=== PATIENT | female | born 1960 | race African-American/Black ===

== ENCOUNTER 2016-08-26 18:58 | Emergency (ER) | payer BC, OTHER ==
[2016-08-26] MEDS ORDERED: ASPIRIN 81 MG TABLET, CHEWABLE ONE (19:54)
[2016-08-26] MEDS ORDERED: ASPIRIN 81 MG TABLET, CHEWABLE PO ONE (19:56)
[2016-08-26 20:27] LABS: ABSOLUTE EOSINOPHILS # (AUTO) 0.1 10^3/uL (0.0-0.6); ABSOLUTE LYMPHOCYTES (AUTO) 2.6 10^3/uL (0.5-4.7); ABSOLUTE MONOCYTES (AUTO) 0.5 10^3/uL (0.1-1.4); ABSOLUTE NEUT (AUTO) 4.3 10^3/uL (1.7-8.2); BASOPHILS % (AUTO) 0.4 % (0-2); EOSINOPHILS % (AUTO) 1.1 % (0-6); HEMATOCRIT 43.4 % (36.0-47.0); HEMOGLOBIN 13.7 g/dL (12.0-15.5); HGB HCT DIFFERENCE -2.3; LYMPHOCYTES % (AUTO) 34.8 % (13-45); MEAN CORPUSCULAR HEMOGLOBIN 26.8 pg (27.0-33.4); MEAN CORPUSCULAR HGB CONC 31.5 g/dL (32.0-36.0); MEAN CORPUSCULAR VOLUME 85 fl (80-97); MONOCYTES % (AUTO) 6.1 % (3-13); RED BLOOD COUNT 5.09 10^6/uL (3.72-5.28); SEGMENTED NEUTROPHILS % (AUTO) 57.6 % (42-78); WHITE BLOOD COUNT 7.5 10^3/uL (4.0-10.5)
[2016-08-26 20:43] LABS: ALANINE AMINOTRANSFERASE 40 U/L (9-52); ALBUMIN 4.4 g/dL (3.5-5.0); ALKALINE PHOSPHATASE 86 U/L (38-126); ANION GAP 8 (5-19); ASPARTATE AMINO TRANSFERASE 32 U/L (14-36); BILIRUBIN,DIRECT 0.3 mg/dL (0.0-0.4); BILIRUBIN,TOTAL 0.5 mg/dL (0.2-1.3); BLOOD UREA NITROGEN 13 mg/dL (7-20); CALCIUM 9.8 mg/dL (8.4-10.2); CARBON DIOXIDE 29 mmol/L (22-30); CHLORIDE 106 mmol/L (98-107); CREATINE KINASE 58 U/L (30-135); CREATININE RESULT 0.61 mg/dL (0.52-1.25); GLUCOSE 84 mg/dL (75-110); LIPASE 101.4 U/L (23-300); POTASSIUM 4.4 mmol/L (3.6-5.0); SODIUM 142.7 mmol/L (137-145); TOTAL PROTEIN 7.6 g/dL (6.3-8.2)
--- NOTE | 2016-08-26 20:44 | RADIOLOGY REPORT (SQ) ---
EXAM DESCRIPTION: CHEST SINGLE VIEW COMPLETED DATE/TIME: 08/26/2016 8:32 pm REASON FOR STUDY: chest pain COMPARISON: 2010. NUMBER OF VIEWS: One view. TECHNIQUE: Single frontal radiographic view of the chest acquired. LIMITATIONS: None. FINDINGS: LUNGS AND PLEURA: No opacities, masses or pneumothorax. No pleural effusion. Attenuated bl ood vessels and flattened cara-diaphragms. MEDIASTINUM AND HILAR STRUCTURES: No masses. Contour normal. HEART AND VASCULAR STRUCTURES: Heart normal in size. Normal vasculature. BONES: No acute findings. HARDWARE: None in the chest. OTHER: No other significant finding. IMPRESSION: COPD. NO ACUTE RADIOGRAPHIC FINDING IN THE CHEST. TECHNICAL DOCUMENTATION: JOB ID: [id number] [employer]- All Rights Reserved
--- NOTE | 2016-08-26 21:15 | ER Document Report ---
ED Cardiac - General Chief Complaint: Chest Pain Stated Complaint: CHEST PAIN Time Seen by Provider: 08/26/16 20:49 Notes: Patient is here to be evaluated for chest pain that she says started yesterday, located in the lower central region of her chest. She describes it as a pressure. She says that she has a history of SVT in her heart has felt as if it was "coming out of my chest", although patient does not say that she is having any SVT issues while here in the emergency department on the monitor. Patient says that it does bring her discomfort to take a deep breath or cough. She takes Cardizem 240 mg daily for this SVT and has not missed a dose. She has not had symptoms like this before. She says that she has been nauseated but not vomiting. She did say that she started having diarrhea yesterday and had 2 or 3 episodes today as well. Has had some generalized abdominal pain. Says that she had bronchitis a couple of weeks ago and has had a residual cough. She has felt a little bit short of breath since yesterday and earlier today. She has had a fever because she has had heavy sweats. Patient has no history of any coronary artery disease or heart attacks. TRAVEL OUTSIDE OF THE [place] IN LAST 30 DAYS: No - Related Data Allergies/Adverse Reactions: promethazine HCl [From Phenergan] Allergy (Unknown, Verified 08/26/16 19:11) Contrast Adverse Reaction (Severe, Uncoded 08/26/16 19:11) Unknown reaction Past Medical History - Social History Smoking Status: Never Smoker Cigarette use (# per day): No Chew tobacco use (# tins/day): No Frequency of alcohol use: None Drug Abuse: None Family History: Reviewed & Not Pertinent Patient has suicidal ideation: No Patient has homicidal ideation: No - Past Medical History Cardiac Medical History: Reports: Other - SVT Neurological Medical History: Reports: Hx Migraine GI Medical History: Reports: Hx Gastroesophageal Reflux Disease, Hx Hiatal Hernia, Other - History of mesenteric thrombosis. Past Surgical History: Reports: Hx Appendectomy, Hx Hysterectomy, Hx Orthopedic Surgery - Immunizations Hx Diphtheria, Pertussis, Tetanus Vaccination: Yes Review of Systems - Review of Systems Notes: REVIEW OF SYSTEMS: CONSTITUTIONAL : Has had sweats and think she may have had some fever. EENT: Denies eye, ear, nose or mouth or throat pain or other symptoms. CARDIOVASCULAR: See HPI. RESPIRATORY: HPI. GASTROINTESTINAL: Denies abdominal pain or nausea, vomiting, has had diarrhea.. GENITOURINARY: Denies difficulty or painful urinating, urinary frequency, blood in urine. MUSCULOSKELETAL: Denies back or neck pain. Denies joint pain or swelling. SKIN: Denies rash or skin lesions. NEUROLOGICAL: Denies LOC or altered mental status. Denies headache. Denies sensory loss or motor deficits. ALL OTHER SYSTEMS REVIEWED AND NEGATIVE. Physical Exam - Vital signs Vitals: Temp Pulse Resp BP Pulse Ox 98.2 F 85 16 139/87 H 100 08/26/16 19:12 08/26/16 19:12 08/26/16 19:12 08/26/16 19:12 08/26/16 19:12 Interpretation: Normal - Notes Notes: PHYSICAL EXAMINATION: GENERAL: Well-appearing, in no acute distress. Vital signs are normal. Patient 's monitor has not shown any runs of SVT since the patient has been here. HEAD: Atraumatic, normocephalic. ENT: oropharynx clear without exudates. Moist mucous membranes. NECK: Normal range of motion, supple. LUNGS: Breath sounds clear and equal bilaterally. No significant tenderness to palpation. HEART: Regular rate and rhythm without murmurs. ABDOMEN: Soft, nontender. No guarding or rebound. BACK: No tenderness throughout entire back. EXTREMITIES: Normal range of motion without pain. Negative Homans bilaterally. NEUROLOGICAL: Normal speech, normal gait. Normal sensory, motor, and reflex exams. Awake, alert, and oriented x3. Cranial nerves normal. PSYCH: Normal mood, normal affect. Anxious. SKIN: Warm, dry, no rashes. Course - Vital Signs Vital signs: Temp Pulse Resp BP Pulse Ox 98.2 F 85 16 139/87 H 100 08/26/16 19:12 08/26/16 19:12 08/26/16 19:12 08/26/16 19:12 08/26/16 19:12 - Laboratory Result Diagrams: 08/26/16 20:13 08/26/16 20:13 Laboratory results interpreted by me: 08/26/16 20:13 MCH 26.8 L MCHC 31.5 L Discharge - Discharge Clinical Impression: Chest pain, non-cardiac Condition: Stable Disposition: HOME, SELF-CARE Additional Instructions: CHEST PAIN OF UNCLEAR CAUSE: The exact cause of your chest pain isn't clear. Fortunately, there is no evidence of a dangerous medical condition. Further testing may be required to find the source of the pain. Most often, we find that this pain is coming from the chest wall -- the muscles or rib joints in the chest. But chest pain can come from the lung and lung lining, the esophagus, the heart valves or heart lining, and even the stomach or gallbladder. Rest. Eat lightly until the pain is gone. We may prescribe medicine for pain and inflammation. You should call the physician immediately if the pain radiates to the shoulder, jaw or arms; if you start to run a fever or develop a cough; or if you develop shortness of breath, or other new or alarming symptoms. NORMAL EXAM AND WORKUP: At this time, your examination and workup show no significant abnormality. No significant abnormal physical findings were noted. All laboratory, EKG, and imaging (x-ray, CT scans, ultrasound) studies that were ordered show no significant abnormality. Although your examination and all studies that were ordered showed no significant abnormal finding, there are no examinations and no studies that are 100% accurate. There is always the possibility that some abnormality could exist and not be detected with physical examination or within the limits and capabilities of laboratory and other studies. You should return or follow up as you were instructed on your visit today for further evaluation if your symptoms do not resolve. CHEST WALL PAIN: Your chest pain may be coming from the chest wall. This is often caused by straining the muscles or joints in the chest during physical activity, direct trauma, coughing, or vigorous vomiting. Persons with arthritis are especially prone to this type of pain, due to inflammation of the cartilage joints near the breast bone. Occasionally, no cause can be found. Rest from strenuous physical activity. This kind of chest pain is usually made worse by movement of the chest. Depending on the symptoms, we may prescribe medicine for pain, muscle relaxation, and antiinflammatory effects. If the pain is new, and seems to be due to muscle strain, cold packs can help. Otherwise, apply gentle warmth to the painful area for 15 minutes every hour or two. You should call contact the doctor immediately if things change. Further evaluation is needed if you develop a fever or cough, if the nature of the pain changes, or if you become short of breath. ASPIRIN: Aspirin has been shown to have a beneficial effect on blood circulation by reducing the clotting effect of platelets in the blood. These beneficial effects can be achieved by taking just a single baby (81 mg) aspirin a day. It is recommended that any person over the age of forty take a single baby aspirin every day for heart and brain circulation, unless you are allergic to aspirin or have some significant bleeding disorder. It is strongly recommended that people who have proven cardiac or blood circulation disturbances should take a baby aspirin every day. FOLLOW-UP CARE: If you have been referred to a physician for follow-up care, call the physician s office for an appointment as you were instructed or within the next two days. If you experience worsening or a significant change in your symptoms, notify the physician immediately or return to the Emergency Department at any time for re-evaluation. If you develop new or worsening symptoms, return at anytime for further evaluation and reassessment. Forms: Parent Work Note, Return to Work
[2016-08-26 21:33] VITALS: BP 135/94
--- NOTE | 2016-08-26 21:37 | EKG REPORT ---
SEVERITY:- NORMAL ECG - SINUS RHYTHM : Confirmed by: Isabelle Sullivan 26-Aug-2016 21:37:12
== END 2016-08-26 21:20 | disposition home or self-care (01) ==
LOC: ER 18:58
DX: R07.89 Other chest pain (principal); I47.1 Supraventricular tachycardia; Z79.899 Other long term (current) drug therapy; R11.0 Nausea; R19.7 Diarrhea, unspecified; R10.84 Generalized abdominal pain; R61 Generalized hyperhidrosis; R05 Cough; R06.02 Shortness of breath; Z88.8 Allergy status to other drugs, medicaments and biological substances; Z87.19 Personal history of other diseases of the digestive system; Z90.49 Acquired absence of other specified parts of digestive tract; Z90.710 Acquired absence of both cervix and uterus
CPT/HCPCS: 36415; 71010; 80053; 82550; 83690; 84484; 85025; 93005; 93010; 99285

== ENCOUNTER → 2018-03-06 | Outpatient (CLI) | payer OTHER ==
[2018-03-06 10:35] LABS: ABSOLUTE EOSINOPHILS # (AUTO) 0.1 10^3/uL (0.0-0.6); ABSOLUTE LYMPHOCYTES (AUTO) 2.1 10^3/uL (0.5-4.7); ABSOLUTE MONOCYTES (AUTO) 0.5 10^3/uL (0.1-1.4); ABSOLUTE NEUT (AUTO) 6.2 10^3/uL (1.7-8.2); BASOPHILS % (AUTO) 0.1 % (0-2); EOSINOPHILS % (AUTO) 0.8 % (0-6); HEMATOCRIT 39.7 % (36.0-47.0); LYMPHOCYTES % (AUTO) 23.5 % (13-45); MEAN CORPUSCULAR HGB CONC 32.9 g/dL (32.0-36.0); MEAN CORPUSCULAR VOLUME 82 fl (80-97); MONOCYTES % (AUTO) 5.3 % (3-13); PLATELET COUNT 255 10^3/uL (150-450); RED BLOOD COUNT 4.83 10^6/uL (3.72-5.28); RED CELL DISTRIBUTION WIDTH 12.6 % (11.5-14.0); SEGMENTED NEUTROPHILS % (AUTO) 70.3 % (42-78); TOTAL CELLS COUNTED % (AUTO) 100 %; WHITE BLOOD COUNT 8.9 10^3/uL (4.0-10.5)
[2018-03-06 11:03] LABS: ANION GAP 8 (5-19); BLOOD UREA NITROGEN 17 mg/dL (7-20); CALCIUM 10.2 mg/dL (8.4-10.2); CARBON DIOXIDE 31 mmol/L (22-30); CHLORIDE 104 mmol/L (98-107); GLUCOSE 117 mg/dL (75-110); SODIUM 142.6 mmol/L (137-145)
--- NOTE | 2018-03-06 11:11 | RADIOLOGY REPORT (SQ) ---
EXAM DESCRIPTION: CHEST PA/LATERAL COMPLETED DATE/TIME: 03/06/2018 10:47 am REASON FOR STUDY: PRE-OP COMPARISON: None. EXAM PARAMETERS: NUMBER OF VIEWS: two views TECHNIQUE: Digital Frontal and Lateral radiographic views of the chest acquired. RADIATION DOSE: NA LIMITATIONS: none FINDINGS: LUNGS AND PLEURA: No opacities, masses or pneumothorax. No pleural effusion. MEDIASTINUM AND HILAR STRUCTURES: No masses or contour abnormalities. HEART AND VASCULAR STRUCTURES: Heart normal size. No evidence for failure. BONES: No acute findings. HARDWARE: None in the chest. OTHER: No other significant finding. IMPRESSION: NO SIGNIFICANT RADIOGRAPHIC FINDING IN THE CHEST. TECHNICAL DOCUMENTATION: JOB ID: [id number] [employer]- All Rights Reserved Reading location - IP/workstation name: [email or web address]
--- NOTE | 2018-03-06 12:42 | EKG REPORT ---
SEVERITY:- NORMAL ECG - SINUS RHYTHM : Confirmed by: Matt Boyce MD 06-Mar-2018 12:41:53
== END ==
LOC: OD 09:59
PROVIDERS: ATTEND Orthopaedic Surgery
DX: Z01.810 Encounter for preprocedural cardiovascular examination (principal); Z01.812 Encounter for preprocedural laboratory examination; Z01.818 Encounter for other preprocedural examination; Z01.89 Encounter for other specified special examinations
CPT/HCPCS: 36415; 71046; 80048; 85025; 93005; 93010

== ENCOUNTER 2018-04-03 10:20 | Day surgery (SDC) | payer OTHER ==
[~2018-04-03 10:20] MED LIST: ACETAMINOPHEN 1,000 MG/100 ML RTUPB IV ONE; BUPIVACAINE HCL 0.5 % INJ/PF 30 ML SDV ONE; CEFAZOLIN 2 GM/D5W RTU 2 GM/50 ML RTUPB IV ONE; CEFAZOLIN 2 GM/D5W RTU 2 GM/50 ML RTUPB IV PRN; DEXAMETHASONE SOD PHOSPHATE INJ 4 MG/1 ML VIAL ONE; FENTANYL CITRATE INJ/PF 100 MCG/2 ML AMPUL ONE; KETOROLAC TROMETHAMINE 60 MG/2 ML SDV ONE; MIDAZOLAM 2 MG/2 ML INJ ONE; ONDANSETRON HCL INJ/PF 4 MG/2 ML SDV ONE; PROPOFOL INJ 200 MG/20 ML VIAL IV ONE
[2018-04-03 11:34] LABS: APPEARANCE,URINE SLIGHTLY-CLOUDY; BILIRUBIN,URINE NEGATIVE (NEGATIVE); COLOR,URINE YELLOW; GLUCOSE, URINE NEGATIVE (NEGATIVE); KETONES,URINE NEGATIVE (NEGATIVE); LEUKOCYTE ESTERASE,URINE TRACE (NEGATIVE); NITRITE,URINE NEGATIVE (NEGATIVE); PROTEIN,URINE NEGATIVE (NEGATIVE); URINE SPECIFIC GRAVITY 1.017; UROBILINOGEN,URINE NEGATIVE mg/dL (<2.0)
[2018-04-03] MEDS ORDERED: ONDANSETRON HCL INJ/PF 4 MG/2 ML SDV IV PRN (14:40)
[2018-04-03] MEDS ORDERED: MEPERIDINE HCL/PF INJ 25 MG/1 ML DISP.SYRIN IV PRN (14:40)
[2018-04-03] MEDS ORDERED: MORPHINE SULFATE 10 MG/ML INJ IV PRN (14:40)
[2018-04-03] MEDS ORDERED: FENTANYL CITRATE INJ/PF 100 MCG/2 ML AMPUL IV PRN ×3 (14:40)
[2018-04-03] MEDS ORDERED: DIPHENHYDRAMINE HCL 50 MG/ML VIAL IV PRN (14:40)
--- NOTE | 2018-04-03 15:20 | Discharge Summary ---
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 Patient instructed to keep dressing dry clean and intact for 4 days and then allowed to remove. At that point patient can shower and apply Band-Aids as needed. Patient can weight-bear as tolerated and do range of motion exercises as tolerated. Crutches for support and safety. Can wean crutches once stable on his feet. Patient instructed to call the office if patient develops fevers chills redness and drainage from the surgical sites. Prescriptions: Oxycodone HCl/Acetaminophen [Percocet 5-325 mg Tablet] 1 - 2 tab PO ASDIR PRN #25 tablet PRN Reason: Referrals: [facility] [Primary Care [facility]] - Discharge Diet: As Tolerated Respiratory Treatments at Home: Deep Breathing/Coughing Discharge Activity: No Driving, No Lifting/Push/Pulling, Slowly Increase Activity, Walk Frequently Home Care Assistance: None Needed Adaptive Devices on Discharge: Axillary Crutches Report the Following to Your Physician Immediately: Shortness of Breath, Vomiting, Increase in Pain, Fever over 101 Degrees, Unusual Bleeding, Redness, Swelling, Warmth, Increased Soreness, Drainage-Yellow, Drainage-Tran, Drainage- Green, Drainage-Foul Smelling
[2018-04-03] MEDS: FENTANYL CITRATE INJ/PF 100 MCG/2 ML AMPUL ONE ×2 (16:15→16:20)
--- NOTE | 2018-04-03 16:37 | Operative Report ---
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 Once the tube was secured the right lower extremity thigh tourniquet was applied and the left lower extremity was prepped and draped in a normal surgical fashion. Timeout was done identifying the left knee has a correct site. The extremity was held elevated for a couple minutes and then tourniquet was inflated at 300 mmHg 0.5% of Marcaine was injected into the anticipated portal sites. 11 blade was used to establish the anterolateral portal. Scope was introduced and the capsule was distended with sterile saline solution. Under direct visualization the anteromedial portal sites was established first by applying a spinal needle and then established with the 11 blade. Probe was introduced and a diagnostic scope was done. Immediately noted the patient had lateral facet grade 2 and 3 changes. Patient also had chondromalacia grade 3 on the lateral tibial plateau. Menisci were intact and the femoral condyles were intact as well as the femoral trochlear groove. She has significant fat tissue as well so we proceeded to then resect some of the fat pad using the shaver and radiofrequency ablator. I also proceeded to use the 4.0 mm shaver to do my chondroplasty of the patella on the lateral facet before and after pictures were taken. The leg was placed in the hyitcc-wi-kiki and I was able then to trim the edges of the lateral meniscus and also the lateral tibial plateau which had some fraying of the cartilage. Final pictures were taken no other pathology appreciated at this point the fluid was removed and the tourniquet was let down and we proceeded to close the wound using 3-0 nylon. Xeroform 4 x 4 dressings were applied and overwrapped with soft roll and Chuck bandage. Patient then was extubated undraped and then sent to PACU in stable condition
[2018-04-03] MEDS ORDERED: TRAMADOL HCL 50 MG TABLET PO PRN (17:40)
[2018-04-03 19:15] VITALS: BP 112/65
== END 2018-04-03 18:05 | disposition home or self-care (01) ==
LOC: OROUT 10:20
PROVIDERS: ATTEND Orthopaedic Surgery
DX: M22.41 Chondromalacia patellae, right knee (principal); I10 Essential (primary) hypertension; I47.9 Paroxysmal tachycardia, unspecified; Z86.718 Personal history of other venous thrombosis and embolism; Z88.8 Allergy status to other drugs, medicaments and biological substances; Z79.899 Other long term (current) drug therapy; Z91.041 Radiographic dye allergy status
CPT/HCPCS: 81001; 29877; J2250; J3490; J1100; J1885; J3010; J2405; J2704; J0690; J0131; 1400

== ENCOUNTER 2018-08-20 13:55 | Emergency (ER) | payer OTHER ==
[2018-08-20] MEDS ORDERED: ACETAMINOPHEN 325 MG TABLET PO ONE (14:47)
[2018-08-20] MEDS ORDERED: NORMAL SALINE 1000 ML 1,000 ML IV ONE (14:47)
--- NOTE | 2018-08-20 14:52 | ER Document Report ---
ED Medical Screen (RME) - General Chief Complaint: Near Syncope Stated Complaint: SYNCOPE Time Seen by Provider: 08/20/18 14:44 Primary Care Provider: [facility] [Primary Care Provider] - Follow up as needed Information source: Patient Notes: Patient presents stating that she outside watering plants and she became diaphoretic. Patient states that she started to have palpitations and that she attributed the sweating to having the palpitations as she does have a history of SVT and suspected the same today. Patient states she felt like she was going to pass out. Patient states she did make it inside her home and then had a syncopal episode. Patient's daughter was able to call EMS. Patient complains of severe headache since this episode with nausea. Patient also complains of left fourth finger pain. Patient complains of feeling generalized weak and tired. I have greeted and performed a rapid initial assessment of this patient. A comprehensive ED assessment and evaluation of the patient, analysis of test results and completion of the medical decision making process will be conducted by additional ED providers. TRAVEL OUTSIDE OF THE [place] IN LAST 30 DAYS: No - Related Data Allergies/Adverse Reactions: promethazine HCl [From Phenergan] Allergy (Unknown, Verified 08/20/18 14:04) Contrast Adverse Reaction (Severe, Uncoded 08/20/18 14:04) Unknown reaction Past Medical History - Past Medical History Cardiac Medical History: Reports: Hx Hypertension - ? Denies: Hx Coronary Artery Disease, Hx Heart Attack Pulmonary Medical History: Denies: Hx Asthma, Hx Bronchitis, Hx COPD, Hx Pneumonia Neurological Medical History: Reports: Hx Migraine. Denies: Hx Cerebrovascular Accident, Hx Seizures Renal/ Medical History: Denies: Hx Peritoneal Dialysis GI Medical History: Reports: Hx Gastroesophageal Reflux Disease, Hx Hiatal Hernia Musculoskeltal Medical History: Reports Hx Arthritis Past Surgical History: Reports: Hx Appendectomy, Hx Hysterectomy, Hx Orthopedic Surgery - Immunizations Hx Diphtheria, Pertussis, Tetanus Vaccination: Yes History of Influenza Vaccine for 11/2016 - 04/2017 Season: Yes Influenza Administration Date for 11/2016 - 04/2017 Season: 12/10/17 Physical Exam - Vital signs Vitals: Temp Pulse Resp BP Pulse Ox 98.1 F 74 20 111/88 H 97 08/20/18 14:36 08/20/18 14:36 08/20/18 14:36 08/20/18 14:36 08/20/18 14:36 - General General appearance: Alert - Neurological Neuro grossly intact: Yes Waldorf Coma Scale Eye Opening: Spontaneous Dionne Coma Scale Verbal: Oriented Waldorf Coma Scale Motor: Obeys Commands Dionne Coma Scale Total: 15 Course - Vital Signs Vital signs: Temp Pulse Resp BP Pulse Ox 98.1 F 74 20 111/88 H 97 08/20/18 14:36 08/20/18 14:36 08/20/18 14:36 08/20/18 14:36 08/20/18 14:36 Doctor's Discharge - Discharge Referrals: [facility] [[facility]] - Follow up as needed
--- NOTE | 2018-08-20 15:45 | RADIOLOGY REPORT (SQ) ---
EXAM DESCRIPTION: CT HEAD WITHOUT COMPLETED DATE/TIME: 08/20/2018 3:35 pm REASON FOR STUDY: GELLER, syncope COMPARISON: 02/28/2011. TECHNIQUE: Axial images acquired through the brain without intravenous contrast. Images reviewed wi th bone, brain and subdural windows. Additional sagittal and coronal reconstructions were generated. Images stored on PACS. All CT scanners at this facility use dose modulation, iterative reconstruction, and/or weight based d osing when appropriate to reduce radiation dose to as low as reasonably achievable (ALARA). [facility]: Dose Right [facility]: CareDose [facility]: Dose Right [facility]: Teradose 4D [facility]: [employer] RADIATION DOSE: CT Rad equipment meets quality standard of care and radiation dose reduction techniq ues were employed. CTDIvol: 53.2 mGy. DLP: 1150 mGy-cm. mGy. LIMITATIONS: None. FINDINGS: VENTRICLES: Normal size and contour. CEREBRUM: No masses. No hemorrhage. No midline shift. No evidence for acute infarction. Normal gra y/white matter differentiation. No areas of low density in the white matter. CEREBELLUM: No masses. No hemorrhage. No alteration of density. No evidence for acute infarction. EXTRAAXIAL SPACES: No fluid collections. No masses. ORBITS AND GLOBE: No intra- or extraconal masses. Normal contour of globe without masses. CALVARIUM: No fracture. PARANASAL SINUSES: No fluid or mucosal thickening. SOFT TISSUES: No mass or hematoma. OTHER: No other significant finding. IMPRESSION: NORMAL BRAIN CT WITHOUT CONTRAST. EVIDENCE OF ACUTE STROKE: NO. COMMENT: Quality ID # [id number]: Final reports with documentation of one or more dose reduction techniques (e.g., Automated exposure control, adjustment of the mA and/or kV according to patient size, use of iterative reconstruction technique) TECHNICAL DOCUMENTATION: JOB ID: [id number] [employer]- All Rights Reserved Reading location - IP/workstation name: [email or web address]
--- NOTE | 2018-08-20 15:50 | RADIOLOGY REPORT (SQ) ---
EXAM DESCRIPTION: FINGER LEFT COMPLETED DATE/TIME: 08/20/2018 3:42 pm REASON FOR STUDY: syncope, L 4th finger injury COMPARISON: None. NUMBER OF VIEWS: Three views. TECHNIQUE: AP, lateral, and oblique images acquired of the left fourth finger. LIMITATIONS: None. FINDINGS: MINERALIZATION: Normal. BONES: No acute fracture or dislocation. No worrisome bone lesions. SOFT TISSUES: No soft tissue swelling. No foreign body. OTHER: No other significant finding. IMPRESSION: NO RADIOGRAPHIC EVIDENCE OF ACUTE INJURY. TECHNICAL DOCUMENTATION: JOB ID: [id number] [employer]- All Rights Reserved Reading location - IP/workstation name: [email or web address]
--- NOTE | 2018-08-20 15:59 | RADIOLOGY REPORT (SQ) ---
EXAM DESCRIPTION: CHEST 2 VIEWS COMPLETED DATE/TIME: 08/20/2018 3:42 pm REASON FOR STUDY: syncope palpitations COMPARISON: 03/06/2018 EXAM PARAMETERS: NUMBER OF VIEWS: two views TECHNIQUE: Digital Frontal and Lateral radiographic views of the chest acquired. RADIATION DOSE: NA LIMITATIONS: none FINDINGS: LUNGS AND PLEURA: No opacities, masses or pneumothorax. No pleural effusion. MEDIASTINUM AND HILAR STRUCTURES: No masses or contour abnormalities. HEART AND VASCULAR STRUCTURES: Heart normal size. No evidence for failure. BONES: No acute findings. HARDWARE: None in the chest. OTHER: No other significant finding. IMPRESSION: NO ACUTE RADIOGRAPHIC FINDING IN THE CHEST. TECHNICAL DOCUMENTATION: JOB ID: [id number] [email or web address]- All Rights Reserved Reading location - IP/workstation name: [email or web address]
[2018-08-20 17:02] LABS: APPEARANCE,URINE SLIGHTLY-CLOUDY; BILIRUBIN,URINE NEGATIVE (NEGATIVE); COLOR,URINE YELLOW; GLUCOSE, URINE NEGATIVE (NEGATIVE); KETONES,URINE NEGATIVE (NEGATIVE); LEUKOCYTE ESTERASE,URINE NEGATIVE (NEGATIVE); NITRITE,URINE NEGATIVE (NEGATIVE); PROTEIN,URINE NEGATIVE (NEGATIVE); URINE SPECIFIC GRAVITY 1.013; UROBILINOGEN,URINE NEGATIVE mg/dL (<2.0)
[2018-08-20] MEDS ORDERED: RINGERS SOLUTION,LACTATED 1,000 ML IV ONE (18:21)
[2018-08-20 18:25] LABS: ALANINE AMINOTRANSFERASE 41 U/L (9-52); ALBUMIN 4.4 g/dL (3.5-5.0); ALKALINE PHOSPHATASE 98 U/L (38-126); ANION GAP 11 (5-19); ASPARTATE AMINO TRANSFERASE 31 U/L (14-36); BILIRUBIN,DIRECT 0.1 mg/dL (0.0-0.4); BILIRUBIN,TOTAL 0.4 mg/dL (0.2-1.3); BLOOD UREA NITROGEN 12 mg/dL (7-20); CALCIUM 9.2 mg/dL (8.4-10.2); CARBON DIOXIDE 26 mmol/L (22-30); CHLORIDE 107 mmol/L (98-107); CREATINE KINASE 47 U/L (30-135); GLUCOSE 96 mg/dL (75-110); POTASSIUM 4.1 mmol/L (3.6-5.0); SODIUM 143.6 mmol/L (137-145); TOTAL PROTEIN 7.5 g/dL (6.3-8.2)
[2018-08-20 18:43] LABS: CREATINE KINASE MB 0.33 ng/mL (<4.55)
[2018-08-20 18:44] LABS: TROPONIN I < 0.012 ng/mL
[2018-08-20 18:57] LABS: ABSOLUTE LYMPHOCYTES (AUTO) 1.8 10^3/uL (0.5-4.7); ABSOLUTE MONOCYTES (AUTO) 0.7 10^3/uL (0.1-1.4); ABSOLUTE NEUT (AUTO) 5.3 10^3/uL (1.7-8.2); BASOPHILS % (AUTO) 0.5 % (0-2); EOSINOPHILS % (AUTO) 0.4 % (0-6); HEMATOCRIT 39.5 % (36.0-47.0); HEMOGLOBIN 12.9 g/dL (12.0-15.5); LYMPHOCYTES % (AUTO) 22.9 % (13-45); MEAN CORPUSCULAR HEMOGLOBIN 27.2 pg (27.0-33.4); MEAN CORPUSCULAR HGB CONC 32.7 g/dL (32.0-36.0); MEAN CORPUSCULAR VOLUME 83 fl (80-97); MONOCYTES % (AUTO) 9.3 % (3-13); PLATELET COUNT 232 10^3/uL (150-450); RED BLOOD COUNT 4.75 10^6/uL (3.72-5.28); SEGMENTED NEUTROPHILS % (AUTO) 66.9 % (42-78); TOTAL CELLS COUNTED % (AUTO) 100 %; WHITE BLOOD COUNT 7.9 10^3/uL (4.0-10.5)
[2018-08-20 19:10] VITALS: BP 122/82
--- NOTE | 2018-08-20 19:12 | ER Document Report ---
ED General - General Chief Complaint: Near Syncope Stated Complaint: SYNCOPE Time Seen by Provider: 08/20/18 14:44 Primary Care Provider: BETSY,JACOBO [Primary Care Provider] - Follow up as needed Notes: Patient is a 58-year-old female with history of SVT that presents to the emergency department for chief complaint of palpitations and syncopal episode. Patient states that she was outside in the sun this afternoon, watering her trees, while she was outside she felt pretty hot, and she states she typically drinks water when she goes outside but she did not do that today, and tried to make her way into the house, she was feeling palpitations at the time and thought her heart was racing, her family member saw her, and held onto her, and she had a brief syncopal episode, lasting only a few seconds, she did have some nausea and one episode of vomiting. She feels a lot better now after receiving fluids by EMS. She denies any chest pain, shortness of breath, difficulty breathing, abdominal pain, recent fevers, chills, night sweats, dysuria or hematuria. She does take Cardizem for her SVT which she did take this morning. Past Medical History: SVT, osteoporosis, hypertension, GERD Past Surgical History: Knee surgery Social History[facility], denies tobacco, alcohol or illicit drug use. Family History: Reviewed and noncontributory for presenting illness Allergies: Reviewed, see documented allergy list. REVIEW OF SYSTEMS: Other than noted above, the 12 point review of systems was reviewed with the patient and were negative, all pertinent findings are included in the HPI. PHYSICAL EXAMINATION: Vital signs reviewed, nursing noted reviewed. GENERAL: Well-appearing, well-nourished and in no acute distress. HEAD: Atraumatic, normocephalic. EYES: Eyes appear normal, extraocular movements intact, sclera anicteric, conjunctiva are normal. ENT: nares patent, oropharynx clear without exudates. Moist mucous membranes. NECK: Normal range of motion, supple without lymphadenopathy LUNGS: Breath sounds clear to auscultation bilaterally and equal. No wheezes rales or rhonchi. HEART: Regular rate and rhythm without murmurs ABDOMEN: Soft, nontender, normoactive bowel sounds. No rebound, guarding, or rigidity. No masses appreciated. EXTREMITIES: Nontender, good range of motion, no pitting or edema. NEUROLOGICAL: No focal neurological deficits. Moves all extremities spontaneously Motor and sensory grossly intact on exam. PSYCH: Normal mood, normal affect. SKIN: Warm, Dry, normal turgor, no rashes or lesions noted on exposed skin TRAVEL OUTSIDE OF THE [place] IN LAST 30 DAYS: No - Related Data Allergies/Adverse Reactions: promethazine HCl [From Phenergan] Allergy (Unknown, Verified 08/20/18 14:04) Contrast Adverse Reaction (Severe, Uncoded 08/20/18 14:04) Unknown reaction Past Medical History - General Information source: Patient - Social History Smoking Status: Never Smoker Frequency of alcohol use: None Drug Abuse: None Family History: Reviewed & Not Pertinent Patient has suicidal ideation: No Patient has homicidal ideation: No - Past Medical History Cardiac Medical History: Reports: Hx Hypertension - ? Denies: Hx Coronary Artery Disease, Hx Heart Attack Pulmonary Medical History: Denies: Hx Asthma, Hx Bronchitis, Hx COPD, Hx Pneumonia Neurological Medical History: Reports: Hx Migraine. Denies: Hx Cerebrovascular Accident, Hx Seizures Renal/ Medical History: Denies: Hx Peritoneal Dialysis GI Medical History: Reports: Hx Gastroesophageal Reflux Disease, Hx Hiatal Hernia Musculoskeletal Medical History: Reports Hx Arthritis Past Surgical History: Reports: Hx Appendectomy, Hx Hysterectomy, Hx Orthopedic Surgery - Immunizations Hx Diphtheria, Pertussis, Tetanus Vaccination: Yes Physical Exam - Vital signs Vitals: Temp Pulse Resp BP Pulse Ox 98.1 F 74 20 111/88 H 97 08/20/18 14:36 08/20/18 14:36 08/20/18 14:36 08/20/18 14:36 08/20/18 14:36 Course - Re-evaluation Re-evalutation: Patient seen and examined vital signs reviewed. Laboratory data and/or imaging were ordered as appropriate for the patient's presenting symptoms and complaint, with consideration of any critical or life threatening conditions that may be associated with their obtained history and exam as noted above. Patient was treated with IV fluid bolusing Results were reviewed when available and demonstrated completely unremarkable blood work, normal troponin, EKG The patient was re-evaluated and was stable, and much improved Evaluation was most consistent with syncopal episode, likely the patient had an episode of SVT while she was outside given she had palpitations and felt her heart racing, she is improved now, and a normal sinus rhythm, been monitored on telemetry, I feel she can be discharged safely at this time. Results were discussed with the patient at this point, after careful consideration I feel that that patient can be discharged from the emergency department, the patient was educated treatments and reasons to return to the emergency department based on their presumed diagnosis as noted above, they were advised to followup with a primary care physician in 2-3 days. Patient was agreeable to plan of care. *Note is created using voice recognition software and may contain spelling, syntax or grammatical errors. Laboratory 08/20/18 08/20/18 08/20/18 16:16 17:22 17:27 WBC RBC Hgb Hct MCV MCH MCHC RDW Plt Count Seg Neutrophils % Lymphocytes % Monocytes % Eosinophils % Basophils % Absolute Neutrophils Absolute Lymphocytes Absolute Monocytes Absolute Eosinophils Absolute Basophils Platelet Estimate Sodium 143.6 Potassium 4.1 Chloride 107 Carbon Dioxide 26 Anion Gap 11 BUN 12 Creatinine 0.64 Est GFR ( Amer) > 60 Est GFR (Non-Af Amer) > 60 Glucose 96 POC Glucose 79 Calcium 9.2 Magnesium 2.2 Total Bilirubin 0.4 Direct Bilirubin 0.1 Neonat Total Bilirubin Not Reportable Neonat Direct Bilirubin Not Reportable Neonat Indirect Bili Not Reportable AST 31 ALT 41 Alkaline Phosphatase 98 Creatine Kinase 47 CK-MB (CK-2) Troponin I Total Protein 7.5 Albumin 4.4 Urine Color YELLOW Urine Appearance SLIGHTLY-CLOUDY Urine pH 7.0 Ur Specific Casey 1.013 Urine Protein NEGATIVE Urine Glucose (UA) NEGATIVE Urine Ketones NEGATIVE Urine Blood NEGATIVE Urine Nitrite NEGATIVE Urine Bilirubin NEGATIVE Urine Urobilinogen NEGATIVE Ur Leukocyte Esterase NEGATIVE Urine WBC (Auto) 11 Urine RBC (Auto) 1 U Hyaline Cast (Auto) 6 Urine Bacteria (Auto) 1+ Squamous Epi Cells Auto <1 Urine Mucus (Auto) OCC Urine Ascorbic Acid 40 H Slides for Path Review 08/20/18 08/20/18 08/20/18 17:27 17:35 18:37 WBC Cancelled 7.9 RBC Cancelled 4.75 Hgb Cancelled 12.9 Hct Cancelled 39.5 MCV Cancelled 83 MCH Cancelled 27.2 MCHC Cancelled 32.7 RDW Cancelled 13.0 Plt Count Cancelled 232 Seg Neutrophils % Cancelled 66.9 Lymphocytes % Cancelled 22.9 Monocytes % Cancelled 9.3 Eosinophils % Cancelled 0.4 Basophils % Cancelled 0.5 Absolute Neutrophils Cancelled 5.3 Absolute Lymphocytes Cancelled 1.8 Absolute Monocytes Cancelled 0.7 Absolute Eosinophils Cancelled 0.0 Absolute Basophils Cancelled 0.0 Platelet Estimate Cancelled Sodium Potassium Chloride Carbon Dioxide Anion Gap BUN Creatinine Est GFR ( Amer) Est GFR (Non-Af Amer) Glucose POC Glucose Calcium Magnesium Total Bilirubin Direct Bilirubin Neonat Total Bilirubin Neonat Direct Bilirubin Neonat Indirect Bili AST ALT Alkaline Phosphatase Creatine Kinase CK-MB (CK-2) 0.33 Troponin I < 0.012 Total Protein Albumin Urine Color Urine Appearance Urine pH Ur Specific Casey Urine Protein Urine Glucose (UA) Urine Ketones Urine Blood Urine Nitrite Urine Bilirubin Urine Urobilinogen Ur Leukocyte Esterase Urine WBC (Auto) Urine RBC (Auto) U Hyaline Cast (Auto) Urine Bacteria (Auto) Squamous Epi Cells Auto Urine Mucus (Auto) Urine Ascorbic Acid Slides for Path Review Cancelled Chest X-Ray 08/20/18 14:46 IMPRESSION: NO ACUTE RADIOGRAPHIC FINDING IN THE CHEST. Head CT 08/20/18 14:46 IMPRESSION: NORMAL BRAIN CT WITHOUT CONTRAST. EVIDENCE OF ACUTE STROKE: NO. Finger X-Ray 08/20/18 14:51 IMPRESSION: NO RADIOGRAPHIC EVIDENCE OF ACUTE INJURY. - Vital Signs Vital signs: Temp Pulse Resp BP Pulse Ox 98.1 F 74 16 115/77 98 08/20/18 14:36 08/20/18 14:36 08/20/18 17:17 08/20/18 17:17 08/20/18 17:17 - Laboratory Result Diagrams: 08/20/18 18:37 08/20/18 17:27 Laboratory results interpreted by me: 08/20/18 16:16 Urine Ascorbic Acid 40 H - EKG Interpretation by Me Additional EKG results interpreted by me: EKG demonstrates sinus rhythm with a ventricular rate of 76 bpm, normal axis, QTC 455 ms, no evidence of acute ischemia in this EKG. Discharge - Discharge Clinical Impression: Syncope Qualifiers: Syncope type: unspecified Qualified Code(s): R55 - Syncope and collapse Condition: Stable Disposition: HOME, SELF-CARE Instructions: Syncopal Episode ([facility]) [facility] [Primary [facility] Provider] - Follow up in 3-5 days
--- NOTE | 2018-08-20 21:57 | EKG REPORT ---
SEVERITY:- NORMAL ECG - SINUS RHYTHM : Confirmed by: Isabelle Sullivan 20-Aug-2018 21:56:07
== END 2018-08-20 19:59 | disposition home or self-care (01) ==
LOC: ER 13:55
DX: R55 Syncope and collapse (principal); R00.2 Palpitations; R11.2 Nausea with vomiting, unspecified; I47.1 Supraventricular tachycardia; Z79.899 Other long term (current) drug therapy; Z88.8 Allergy status to other drugs, medicaments and biological substances
CPT/HCPCS: 93005; 99285; 96360; 96361; 36415; 82553; 82962; 82550; 83735; 85025; 80053; 81001; 84484; 71046; 73140; 70450; 93010; J7030; J7120

== ENCOUNTER → 2018-10-15 | Outpatient (CLI) | payer MEDICARE ==
--- NOTE | 2018-10-15 13:46 | RADIOLOGY REPORT (SQ) ---
EXAM DESCRIPTION: MRI HEAD WITHOUT COMPLETED DATE/TIME: 10/15/2018 1:23 pm REASON FOR STUDY: R41.1 ANTEROGRADE AMNESIA R41.1 ANTEROGRADE AMNESIA COMPARISON: 08/20/2018 TECHNIQUE: Multiplanar imaging includes non-contrasted T1, T2, FLAIR, and diffusion with ADC map seq uences. Images stored on PACS. LIMITATIONS: None. FINDINGS: ANATOMY: No anomalies. Normal vascular flow voids. Pituitary fossa normal. CSF SPACES: Normal in size and contour. No hemorrhage. CEREBRUM: Sulci and gyri normal in size and contour. Mild areas of FLAIR signal prolongation within the periventricular region subcortical white matter, nonspecific but likely sequelae of microangiopat hic disease. No evidence of hemorrhage, mass, or extraaxial fluid collection. POSTERIOR FOSSA: No signal alteration. No hemorrhage. No edema, masses or mass effect. Internal makayla tory canals, cerebello-pontine angles, mastoids normal. DIFFUSION IMAGING: Negative for acute or sub-acute infarction. ORBITS: No masses. Globes normal. PARANASAL SINUSES: No fluid levels. Mucosa normal. OTHER: No other significant finding. IMPRESSION: 1. No evidence of acute intracranial abnormality. 2. 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 EVIDENCE OF ACUTE STROKE: NO. TECHNICAL DOCUMENTATION: JOB ID: [id number] [email or web address]- All Rights Reserved Reading location - IP/workstation name: [email or web address]
== END ==
LOC: RAD 12:24
PROVIDERS: ATTEND Internal Medicine
DX: R41.1 Anterograde amnesia (principal)
CPT/HCPCS: 70551

== ENCOUNTER 2018-12-22 17:09 | Emergency (ER) | payer OTHER, MEDICARE ==
[2018-12-22 17:22] VITALS: BP 161/95
[2018-12-22] MEDS ORDERED: CEPHALEXIN 500 MG CAPSULE PO ONE (17:31)
[2018-12-22] MEDS ORDERED: BUPIVACAINE HCL 0.5 % INJ/PF 30 ML SDV INJ ONE (17:31)
--- NOTE | 2018-12-22 17:32 | ER Document Report ---
HPI - HPI Patient complains to provider of: finger infection Time Seen by Provider: 12/22/18 17:23 Onset: Other - 5 days Onset/Duration: Worse Quality of pain: Achy Pain Level: 5 Context: Patient states she got her nails done 5 days ago and when she got home her finger started to become sore. Patient states that the area became tender and swollen and she saw her doctor 3 days ago and was placed on an antibiotic. Patient states that her finger has continued to swell and become painful. Patient denies any fever. Patient denies any history of diabetes. Associated Symptoms: Other - Right third finger pain and swelling. denies: Fever Exacerbated by: Movement Relieved by: Denies Similar symptoms previously: No Recently seen / treated by doctor: Yes - ROS ROS below otherwise negative: Yes Systems Reviewed and Negative: Yes All other systems reviewed and negative - CONSTITUTIONAL Constitutional: DENIES: Fever, Chills - GASTROINTESTINAL Gastrointestinal: DENIES: Nausea - MUSCULOSKELETAL Musculoskeletal: REPORTS: Extremity pain, Swelling - DERM Skin Color: Erythema Past Medical History - General Information source: Patient - Social History Smoking Status: Never Smoker Frequency of alcohol use: None Drug Abuse: None 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 Lives with: Spouse/Significant other Family History: Reviewed & Not Pertinent - Past Medical History Cardiac Medical History: Reports: Hx Hypertension - ?, Other - SVT Neurological Medical History: Reports: Hx Migraine Endocrine Medical History: Denies: Hx Diabetes Mellitus Type 1, Hx Diabetes Mellitus Type 2 Renal/ Medical History: Denies: Hx Peritoneal Dialysis GI Medical History: Reports: Hx Gastroesophageal Reflux Disease, Hx Hiatal Hernia Musculoskeletal Medical History: Reports Hx Arthritis Past Surgical History: Reports: Hx Appendectomy, Hx Hysterectomy, Hx Orthopedic Surgery - Immunizations Hx Diphtheria, Pertussis, Tetanus Vaccination: Yes Vertical Provider Document - CONSTITUTIONAL Agree With Documented VS: Yes Exam Limitations: No Limitations General Appearance: WD/WN, No Apparent Distress - INFECTION CONTROL TRAVEL OUTSIDE OF THE [place] IN LAST 30 DAYS: No - HEENT HEENT: Atraumatic, Normocephalic - NECK Neck: Normal Inspection - RESPIRATORY Respiratory: No Respiratory Distress - CARDIOVASCULAR Pulses: Normal: Radial - MUSCULOSKELETAL/EXTREMETIES Musculoskeletal/Extremeties: MAEW, Tender - R 3rd finger, Edema - NEURO Level of Consciousness: Awake, Alert, Appropriate Motor/Sensory: No Motor Deficit - DERM Integumentary: Warm, Dry Notes: Erythema surrounding nailbed of right third finger, tenderness extends to palmar surface of the finger. Course - Re-evaluation Re-evalutation: 12/22/18 18:31 Patient with a paronychia and felon at this time. Patient already taking doxycycline, will add cephalexin in addition to I&D procedure. Patient encouraged to follow-up with hand surgeon. - Vital Signs Vital signs: Temp Pulse Resp BP Pulse Ox 97.9 F 89 161/95 H 94 12/22/18 17:19 12/22/18 17:19 12/22/18 17:19 12/22/18 17:19 Procedures - Incision and Drainage Right Finger 3rd digit Type: Simple Anesthetic type: 0.5% Bupivacaine mL's of anesthetic: 3 Blade size: 11 I&D procedure: Betadine prep applied Incision Method: Incision made by scalpel Amount/type of drainage: Scant amount of purulent drainage Notes: 12/22/18 18:29 Linear incision made along the medial aspect of right third finger, scant purulent drainage removed. Discussed with patient concern about very minimal drainage with incision along the nail bed. Patient is agreeable with a lateral incision at this time to attempt to drain any potential pulp space infection. Lateral incision was then made to the medial aspect of the finger 4 mm distal to the DIP crease. Only bloody drainage removed from lateral incision. Discharge - Discharge Clinical Impression: Felon of finger Paronychia of finger Qualifiers: Laterality: right Qualified Code(s): L03.011 - Cellulitis of right finger Condition: Stable Disposition: HOME, SELF-CARE Instructions: Cephalexin ([facility]), Felon (Fingertip Abscess) ([facility]), Paronychia ([facility]), Warm Packs ([facility]) Additional Instructions: Return immediately for any new or worsening symptoms Followup with your primary care provider, call tomorrow to make a followup appointment Follow-up with the hand surgeon for any persistent problems. Continue to take the doxycycline in addition to the cephalexin that was prescribed here today. Prescriptions: Cephalexin Monohydrate [Keflex 500 mg Capsule] 500 mg PO Q6H 7 Days capsule Referrals: ANTONIO OHARA MD [Primary Care Provider] - Follow up tomorrow PEREZ MONTGOMERY DO [ACTIVE STAFF] - Follow up as needed
== END 2018-12-22 18:35 | disposition home or self-care (01) ==
LOC: ER 17:09
DX: L03.011 Cellulitis of right finger (principal)
CPT/HCPCS: 99283; 10060; J3490

== ENCOUNTER 2019-05-15 13:04 | Emergency (ER) | payer OTHER, MEDICARE ==
--- NOTE | 2019-05-15 13:13 | ER Document Report ---
ED Medical Screen (RME) - General Chief Complaint: Chest Pain Stated Complaint: COUGH, CONGESTION, DIAHERRA, CHEST PAIN Time Seen by Provider: 05/15/19 13:07 Primary Care Provider: SAGRARIO BELLA MD [Primary Care Provider] - Follow up as needed Mode of Arrival: Ambulatory Information source: Patient Notes: 58-year-old female presented to ED for complaint of cough congestion back pain chest pain and headache with diarrhea. She states the chest pain started last night, cough and congestion back pain started 2 days ago he states he does not know of any fevers. She has not been around anyone that has had the coronavirus. 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 States she does not smoke drink or use any illicit drugs. He lives with her . I have greeted and performed a rapid initial assessment of this patient. A comprehensive ED assessment and evaluation of the patient, analysis of test results and completion of medical decision making process will be conducted by an additional ED providers. TRAVEL OUTSIDE OF THE [place] IN LAST 30 DAYS: No - Related Data Allergies/Adverse Reactions: promethazine HCl [From Phenergan] Allergy (Unknown, Verified 08/20/18 14:04) Contrast Adverse Reaction (Severe, Uncoded 08/20/18 14:04) Unknown reaction Past Medical History - Past Medical History Cardiac Medical History: Reports: Hx Hypertension - ? Denies: Hx Coronary Artery Disease, Hx Heart Attack Pulmonary Medical History: Denies: Hx Asthma, Hx Bronchitis, Hx COPD, Hx Pneumonia Neurological Medical History: Reports: Hx Migraine. Denies: Hx Cerebrovascular Accident, Hx Seizures Endocrine Medical History: Denies: Hx Diabetes Mellitus Type 1, Hx Diabetes Mellitus Type 2 Renal/ Medical History: Denies: Hx Peritoneal Dialysis GI Medical History: Reports: Hx Gastroesophageal Reflux Disease, Hx Hiatal Hernia Musculoskeltal Medical History: Reports Hx Arthritis Past Surgical History: Reports: Hx Appendectomy, Hx Hysterectomy, Hx Orthopedic Surgery - Immunizations Hx Diphtheria, Pertussis, Tetanus Vaccination: Yes Doctor's Discharge - Discharge Referrals: SAGRARIO BELLA MD [Primary Care Provider] - Follow up as needed
[2019-05-15 13:53] LABS: ABSOLUTE EOSINOPHILS # (AUTO) 0.1 10^3/uL (0.0-0.6); ABSOLUTE LYMPHOCYTES (AUTO) 0.9 10^3/uL (0.5-4.7); ABSOLUTE MONOCYTES (AUTO) 0.7 10^3/uL (0.1-1.4); ABSOLUTE NEUT (AUTO) 6.3 10^3/uL (1.7-8.2); BASOPHILS % (AUTO) 0.4 % (0-2); EOSINOPHILS % (AUTO) 1.3 % (0-6); HEMATOCRIT 41.6 % (36.0-47.0); HEMOGLOBIN 14.1 g/dL (12.0-15.5); LYMPHOCYTES % (AUTO) 11.5 % (13-45); MEAN CORPUSCULAR HGB CONC 33.8 g/dL (32.0-36.0); MEAN CORPUSCULAR VOLUME 83 fl (80-97); MONOCYTES % (AUTO) 9.1 % (3-13); PLATELET COUNT 242 10^3/uL (150-450); RED BLOOD COUNT 5.02 10^6/uL (3.72-5.28); RED CELL DISTRIBUTION WIDTH 12.6 % (11.5-14.0); SEGMENTED NEUTROPHILS % (AUTO) 77.7 % (42-78); TOTAL CELLS COUNTED % (AUTO) 100 %; WHITE BLOOD COUNT 8.1 10^3/uL (4.0-10.5)
[2019-05-15 14:12] LABS: A TYPE INFLUENZA AG NEGATIVE (NEGATIVE); ALBUMIN 5.2 g/dL (3.5-5.0); ALKALINE PHOSPHATASE 122 U/L (38-126); ANION GAP 9 (5-19); ASPARTATE AMINO TRANSFERASE 30 U/L (14-36); B INFLUENZA AG NEGATIVE (NEGATIVE); BILIRUBIN,TOTAL 0.6 mg/dL (0.2-1.3); BLOOD UREA NITROGEN 10 mg/dL (7-20); CALCIUM 10.4 mg/dL (8.4-10.2); CARBON DIOXIDE 31 mmol/L (22-30); CHLORIDE 103 mmol/L (98-107); GLUCOSE 120 mg/dL (75-110); POTASSIUM 4.1 mmol/L (3.6-5.0); TOTAL PROTEIN 9.1 g/dL (6.3-8.2)
--- NOTE | 2019-05-15 14:21 | RADIOLOGY REPORT (SQ) ---
EXAM DESCRIPTION: CHEST 2 VIEWS COMPLETED DATE/TIME: 05/15/2019 2:02 pm REASON FOR STUDY: Cough congestion headache chest pain COMPARISON: 08/20/2018 EXAM PARAMETERS: NUMBER OF VIEWS: two views TECHNIQUE: Digital Frontal and Lateral radiographic views of the chest acquired. RADIATION DOSE: NA LIMITATIONS: none FINDINGS: LUNGS AND PLEURA: No opacities, masses or pneumothorax. No pleural effusion. MEDIASTINUM AND HILAR STRUCTURES: No masses or contour abnormalities. HEART AND VASCULAR STRUCTURES: Heart normal size. No evidence for failure. BONES: No acute findings. HARDWARE: None in the chest. OTHER: No other significant finding. IMPRESSION: NO ACUTE RADIOGRAPHIC FINDING IN THE CHEST. TECHNICAL DOCUMENTATION: JOB ID: [id number] [employer]- All Rights Reserved Reading location - IP/workstation name: [email or web address]
[2019-05-15] MEDS ORDERED: KETOROLAC TROMETHAMINE 60 MG/2 ML SDV IM ONE (14:49)
--- NOTE | 2019-05-15 14:55 | ER Document Report ---
ED Flu Like - General Chief Complaint: Chest Pain Stated Complaint: COUGH, CONGESTION, DIAHERRA, CHEST PAIN Time Seen by Provider: 05/15/19 13:07 Primary Care Provider: SAGRARIO BELLA MD [ACTIVE STAFF] - Follow up as needed Mode of Arrival: Ambulatory Notes: CHIEF COMPLAINT: Multiple complaints HPI: 58-year-old female presenting with multiple complaints. Patient states 2 days ago she developed nausea with some diarrhea. No abdominal pain no fever developed myalgia, slight frontal headache, slight dry cough. No shortness of breath. Chest pain with coughing only. Reports nasal congestion. No posterior neck pain. ROS: See HPI - all other systems were reviewed and are otherwise negative Constitutional: no fever Eyes: no drainage, no blurred vision ENT: Positive runny nose, no sore throat Cardiovascular: no chest pain Resp: no SOB, positive cough GI: no vomiting, positive diarrhea, no abdominal pain, positive nausea : no dysuria Integumentary: no rash Allergy: no hives Musculoskeletal: Positive myalgia Neurological: no numbness/tingling, no weakness MEDICATIONS: I agree with the patient medications as charted by the RN. ALLERGIES: I agree with the allergies as charted by the RN. PAST MEDICAL HISTORY/PAST SURGICAL HISTORY: Reviewed and agree as charted by RN. SOCIAL HISTORY: Reviewed and agree as charted by RN. FAMILY HISTORY: No significant familial comorbid conditions directly related to patient complaint EXAM: Reviewed vital signs as charted by RN. CONSTITUTIONAL: Alert and oriented and responds appropriately to questions. Well-appearing; well-nourished, no acute distress I had to wake the patient from sleep to examine her HEAD: Normocephalic; atraumatic EYES: PERRL; Conjunctivae clear, sclerae non-icteric ENT: normal nose; positive yellow rhinorrhea; moist mucous membranes; pharynx without lesions noted, no uvula edema or deviation, no tonsillar hypertrophy, phonation normal. No sinus tenderness on palpation NECK: Supple without meningismus; non-tender; no cervical lymphadenopathy, no masses CARD: RRR; no murmurs, no clicks, no rubs, no gallops; symmetric distal pulses RESP: Normal chest excursion without splinting or tachypnea; breath sounds clear and equal bilaterally; no wheezes, no rhonchi, no rales, pulse oximetry 98% on room air not hypoxic ABD/GI: Normal bowel sounds; non-distended; soft, non-tender, no rebound, no guarding; no palpable organomegaly or masses. BACK: The back appears normal and is non-tender to palpation, there is no CVA tenderness EXT: Normal ROM in all joints; non-tender to palpation; no cyanosis, no e ffusions, no edema SKIN: Normal color for age and race; warm; dry; good turgor; no acute lesions noted NEURO: Moves all extremities equally; Motor and sensory function intact PSYCH: The patient's mood and manner are appropriate. Grooming and personal hygiene are appropriate. MDM: 58-year-old female with flulike symptoms for 2 days. No definite fevers. Chest x-ray does not show evidence of infiltrate or pneumonia. Screening lab work does not show acute abnormalities. She has no abdominal pain on exam. Awaiting urinalysis will treat myalgia, if urine negative plan to discharge with symptomatic treatment TRAVEL OUTSIDE OF THE [place] IN LAST 30 DAYS: No - Related Data Allergies/Adverse Reactions: promethazine HCl [From Phenergan] Allergy (Unknown, Verified 08/20/18 14:04) Contrast Adverse Reaction (Severe, Uncoded 08/20/18 14:04) Unknown reaction Past Medical History - General Information source: Patient - Social History Smoking Status: Never Smoker Chew tobacco use (# tins/day): No Drug Abuse: None Family History: Reviewed & Not Pertinent Patient has suicidal ideation: No Patient has homicidal ideation: No - Past Medical History Cardiac Medical History: Reports: Hx Hypertension - ? Denies: Hx Coronary Artery Disease, Hx Heart Attack Pulmonary Medical History: Denies: Hx Asthma, Hx Bronchitis, Hx COPD, Hx Pneumonia Neurological Medical History: Reports: Hx Migraine. Denies: Hx Cerebrovascular Accident, Hx Seizures Endocrine Medical History: Denies: Hx Diabetes Mellitus Type 1, Hx Diabetes Mellitus Type 2 Renal/ Medical History: Denies: Hx Peritoneal Dialysis GI Medical History: Reports: Hx Gastroesophageal Reflux Disease, Hx Hiatal Hernia Musculoskeletal Medical History: Reports Hx Arthritis Past Surgical History: Reports: Hx Appendectomy, Hx Hysterectomy, Hx Orthopedic Surgery - Immunizations Hx Diphtheria, Pertussis, Tetanus Vaccination: Yes Physical Exam - Vital signs Vitals: Temp Pulse Resp BP Pulse Ox 97.9 F 106 H 18 125/57 L 100 05/15/19 13:10 05/15/19 13:10 05/15/19 13:10 05/15/19 13:10 05/15/19 13:10 Course - Re-evaluation Re-evalutation: 05/15/19 17:50 Urine does not show evidence of infection. Other lab work and imaging studies do not show acute abnormalities will treat symptomatically likely a viral etiology - Vital Signs Vital signs: Temp Pulse Resp BP Pulse Ox 97.9 F 106 H 18 125/57 L 100 05/15/19 13:10 05/15/19 13:10 05/15/19 13:10 05/15/19 13:10 05/15/19 13:10 - Laboratory Result Diagrams: 05/15/19 13:30 05/15/19 13:30 Laboratory results interpreted by me: 05/15/19 05/15/19 05/15/19 13:30 13:30 15:44 Lymph % (Auto) 11.5 L Carbon Dioxide 31 H Glucose 120 H Calcium 10.4 H Total Protein 9.1 H Albumin 5.2 H Urine Protein 30 H Urine Ketones TRACE H Urine Ascorbic Acid 40 H Discharge - Discharge Clinical Impression: Influenza-like illness Diarrhea Qualifiers: Diarrhea type: unspecified type Qualified Code(s): R19.7 - Diarrhea, unspecified Condition: Stable Disposition: HOME, SELF-CARE Additional Instructions: Take the medications as prescribed for your symptoms. Take Voltaren for body ache or fever. Use Flonase for nasal congestion. Take Zofran for any nausea or vomiting. 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 Follow-up with your primary care provider for reevaluation of symptoms call for appointment Prescriptions: Fluticasone Propionate [Flonase Nasal [place] 50 Mcg/[place] 16 gm] 1 spray NASL Q12 #1 inhaler Diclofenac Sodium [Voltaren 50 Mg Tablet.] 50 mg PO BID #20 tablet. Ondansetron [Zofran Odt 4 mg Tablet] 1 - 2 tab PO Q4H PRN #15 tab.rapdis PRN Reason: For Nausea/Vomiting Referrals: SAGRARIO BELLA MD [ACTIVE STAFF] - Follow up as needed
[2019-05-15 17:44] LABS: APPEARANCE,URINE SLIGHTLY-CLOUDY; BILIRUBIN,URINE NEGATIVE (NEGATIVE); COLOR,URINE YELLOW; GLUCOSE, URINE NEGATIVE (NEGATIVE); KETONES,URINE TRACE mg/dL (NEGATIVE); PROTEIN,URINE 30 mg/dL (NEGATIVE); URINE SPECIFIC GRAVITY 1.021; UROBILINOGEN,URINE NEGATIVE mg/dL (<2.0)
[2019-05-15 18:11] VITALS: BP 134/85
--- NOTE | 2019-05-15 18:23 | EKG REPORT ---
SEVERITY:- ABNORMAL ECG - WANDERING ATRIAL PACEMAKER(CHAOTIC ATRIAL MECHANISM) : Confirmed by: Layla Ortiz MD 15-May-2019 18:22:59
== END 2019-05-15 18:12 | disposition home or self-care (01) ==
LOC: ER 13:04
DX: J11.1 Influenza due to unidentified influenza virus with other respiratory manifestations (principal); R19.7 Diarrhea, unspecified; R07.9 Chest pain, unspecified; R05 Cough; M54.9 Dorsalgia, unspecified; Z90.710 Acquired absence of both cervix and uterus
CPT/HCPCS: 93005; 99284; 96372; 36415; 83690; 85025; 80053; 81001; 84484; 87804; 71046; 93010; J1885

== ENCOUNTER → 2019-10-15 | Outpatient (CLI) | payer MEDICARE, OTHER ==
--- NOTE | 2019-10-15 13:22 | RADIOLOGY REPORT (SQ) ---
EXAM DESCRIPTION: CTA CHEST IMAGES COMPLETED DATE/TIME: 10/15/2019 11:42 am REASON FOR STUDY: CHEST PAIN (R07.9) R07.9 CHEST PAIN, UNSPECIFIED COMPARISON: 05/15/2019 TECHNIQUE: CT scan of the chest performed using helical scanning technique with dynamic intravenous contrast injection. Images reviewed with lung, soft tissue and bone windows. Reconstructed coronal and sagittal MPR images reviewed. Additional 3 dimensional post-processing performed to develop Maximal Intensity Projection images ([place] P). All images stored on PACS. All CT scanners at this facility use dose modulation, iterative reconstruction, and/or weight based d osing when appropriate to reduce radiation dose to as low as reasonably achievable (ALARA). [facility]: Dose Right [facility]: CareDose [facility]: Dose Right [facility]: Teradose 4D [facility]: [email or web address] CONTRAST TYPE AND DOSE: contrast/concentration: Isovue 350.00 mmol/ml; Total Contrast Delivered: 52. 0 ml; Total Saline Delivered: 80.0 ml Contrast bolus optimized for the pulmonary arteries. Not diagnostic for the aorta. RENAL FUNCTION: Creatinine 0.8 RADIATION DOSE: CT Rad equipment meets quality standard of care and radiation dose reduction techniq ues were employed. CTDIvol: 5.6 - 7.4 mGy. DLP: 291 mGy-cm. . LIMITATIONS: None. FINDINGS: LUNGS AND PLEURA: No masses, infiltrates, or pneumothorax. No pleural effusions or pleura l calcifications. AORTA AND GREAT VESSELS: No aneurysm. Contrast bolus not optimized for the aorta. HEART: No pericardial effusion. No significant coronary artery calcifications. PULMONARY ARTERIES: No emboli visualized in the main pulmonary arteries or the segmental branches. HILAR AND MEDIASTINAL STRUCTURES: No identified masses or abnormal nodes. HARDWARE: None in the chest. UPPER ABDOMEN: No significant findings. Limited exam. THYROID AND OTHER SOFT TISSUES: No masses. No adenopathy. BONES: No acute or significant finding. 3D MIPS: Confirm above findings. OTHER: No other significant finding. IMPRESSION: NORMAL CTA OF THE CHEST. NO PULMONARY EMBOLI. COMMENT: Quality ID # [id number]: Final reports with documentation of one or more dose reduction techniques (e.g., Automated exposure control, adjustment of the mA and/or kV according to patient size, use of iterative reconstruction technique) TECHNICAL DOCUMENTATION: JOB ID: [id number] [employer]- All Rights Reserved Reading location - IP/workstation name: [email or web address]
== END ==
LOC: RAD 10:54
PROVIDERS: ATTEND Internal Medicine
DX: R07.9 Chest pain, unspecified (principal)
CPT/HCPCS: 71275; 82565